=== PATIENT | male | born 1960 | race Caucasian/White ===

== ENCOUNTER 2021-04-05 10:25 | Outpatient (CLI) | payer SELFPAY ==
[2021-04-05 13:44] LABS: Prothrombin Time 10.8 sec (9.5-12.1)
[2021-04-05 13:47] LABS: Anion Gap 13 mmol/L (10-20); BUN (Urea Nitrogen) 14 mg/dL (8.4-25.7); Calc. Creatinine Clearance 0 mL/min (70-130); Calcium 9.4 mg/dL (7.8-10.44); Carbon Dioxide 26 mmol/L (23-31); Chloride 106 mmol/L (98-107); Glucose 81 mg/dL (80-115); Potassium 4.1 mmol/L (3.5-5.1); Sodium 141 mmol/L (136-145)
[2021-04-05 14:06] LABS: #Eosinphils 0.3 10x3/uL (0.0-0.5); #Monocytes 0.7 10x3/uL (0.0-1.1); #Neutrophils 2.2 10x3/uL (1.5-8.4); %Basophils 0.8 % (0.0-2.0); %Eosinophils 5.9 % (0.0-6.0); %Lymphocytes 37.6 % (18.0-47.0); %Monocytes 12.8 % (0.0-10.0); %Neutrophils 42.7 % (40.0-75.0); Hemoglobin 14.6 g/dL (13.5-17.5); Mean Corpuscular HGB CONC 33.7 g/dL (32.0-36.0); Mean Corpuscular Hemoglobin 29.8 pg (27.0-33.0); Mean Corpuscular Volume 88.4 fl (81.2-95.1); Mean Platelet Volume 8.6 fl (7.4-10.4); Platelet Count 222 10x3/uL (150-450); RBC Distribution Width 11.8 % (11.5-14.5); White Blood Cell (WBC) Count 5.1 10x3/uL (3.5-10.5)
[2021-04-05 17:27] LABS: SARS-CoV-2 PCR by NAA Not Detected (NotDetected)
== END 2021-04-05 10:26 | disposition home or self-care (01) ==
LOC: LABBT 10:25
PROVIDERS: ATTEND Orthopaedic Surgery
DX: Z01.818 Encounter for other preprocedural examination (principal); M16.12 Unilateral primary osteoarthritis, left hip; Z20.822 Contact with and (suspected) exposure to COVID-19
CPT/HCPCS: 80048; 85025; 85610; 87081; 93005; 93010; U0003; U0005

== ENCOUNTER 2021-04-05 10:30 | Inpatient (IN) | payer OTHER ==
[2021-04-09 11:42] VITALS: BMI 35.2
[2021-04-10] MEDS ORDERED: Tranexamic Acid 1,000 MG/10 ML VIAL ONE ×2 (07:36→13:21)
[2021-04-10] MEDS ORDERED: Sodium Chloride 0.9% 100 ML ONE (07:36)
[2021-04-10] MEDS ORDERED: ceFAZolin 2 GM/DEX 5% 100 ML BAG ONE (07:37)
[2021-04-10] MEDS ORDERED: Midazolam HCl 2 mg/2 ml Vial ONE (08:06)
[2021-04-10] MEDS ORDERED: Fentanyl 100 MCG/2 ML VIAL ONE ×2 (08:06→10:03)
[2021-04-10] MEDS ORDERED: Scopolamine 1.5 mg/72 hour Patch ONE (08:52)
[2021-04-10] MEDS ORDERED: Zolpidem Tartrate 5 MG TAB PO PRN ×2 (09:15→14:14)
[2021-04-10] MEDS ORDERED: HYDROcodone/Acetaminophen 5/325 mg Tablet PO PRN ×2 (09:15)
[2021-04-10] MEDS ORDERED: traMADol HCl 50 MG TAB PO PRN ×3 (09:15→14:14)
[2021-04-10] MEDS ORDERED: Promethazine HCl 25 MG SUPP PR PRN (09:15)
[2021-04-10] MEDS ORDERED: Fentanyl 5 mcg/Bup 0.075% Cadd 100 ML EPIDURAL SCH (09:15)
[2021-04-10] MEDS ORDERED: Promethazine HCl 25 MG/ML VIAL IM PRN ×3 (09:15→14:14)
[2021-04-10] MEDS ORDERED: Ketorolac Tromethamine 30 MG/ML VIAL IVP PRN ×2 (09:15→12:10)
[2021-04-10] MEDS ORDERED: Naloxone HCl 0.4 mg/ml Vial IV PRN (09:15)
[2021-04-10] MEDS ORDERED: Bupivacaine 0.25% 10 ML VIAL EPIDURAL PRN (09:15)
[2021-04-10] MEDS ORDERED: Ondansetron PF 4 MG/2 ML Vial IVP PRN ×2 (09:15→14:14)
[2021-04-10] MEDS ORDERED: Hydrocerin (Eucerin) Cream 120 gm Jar TOP PRN (09:15)
[2021-04-10] MEDS ORDERED: Acetaminophen 500 MG TAB PO PRN (09:15)
[2021-04-10] MEDS ORDERED: diphenhydrAMINE 50 MG/ML VIAL IM PRN (09:15)
[2021-04-10] MEDS ORDERED: Naloxone HCl 0.4 mg/ml Vial IVP PRN (09:15)
[2021-04-10] MEDS ORDERED: diphenhydrAMINE 50 MG/ML VIAL IVP PRN (09:15)
[2021-04-10] MEDS ORDERED: diphenhydrAMINE 25 MG CAP PO PRN ×2 (09:15→14:14)
[2021-04-10] MEDS ORDERED: Vancomycin 1.5 GRAM/300 ML BAG 1.5 GM in Premix Bag 1 BAG IVPB SCH ×2 (09:30→22:00)
[2021-04-10] MEDS ORDERED: Bupivacaine 0.25% HCL 30 ML VIAL ONE (10:09)
[2021-04-10] MEDS ORDERED: Dexamethasone 20 MG/5 ML VIAL ONE (10:23)
[2021-04-10] MEDS ORDERED: Glycopyrrolate 0.2 MG/ML 5 ML SYRINGE ONE (10:23)
[2021-04-10] MEDS ORDERED: PHENYLEPHRINE-NS 100 MCG/ML 10 ML SYRINGE ONE (10:23)
[2021-04-10] MEDS ORDERED: Lidocaine 1% PF 5 ML VIAL ONE (10:23)
[2021-04-10] MEDS ORDERED: Ketorolac Tromethamine 30 MG/ML VIAL ONE (10:23)
[2021-04-10] MEDS ORDERED: Ondansetron PF 4 MG/2 ML Vial ONE (10:23)
[2021-04-10] MEDS ORDERED: PROPOFOL 200 MG/20 ML VIAL ONE (10:23)
[2021-04-10] MEDS ORDERED: Lidocaine 1.5% w/Epi 1:200K 30 ML VIAL (Epid Use) ONE (10:23)
[2021-04-10] MEDS ORDERED: Rocuronium Bromide 10 MG/ML (10ML VIAL) ONE (10:23)
[2021-04-10] MEDS ORDERED: Promethazine HCl 25 MG/ML VIAL IVPB PRN (12:10)
[2021-04-10] MEDS ORDERED: Ondansetron HCl/PF 4 MG/2 ML Vial IVP PRN (12:10)
[2021-04-10] MEDS ORDERED: HYDROmorphone 2 MG/ML VIAL SLOW IVP PRN (12:10)
[2021-04-10] MEDS ORDERED: Fentanyl 100 MCG/2 ML VIAL SLOW IVP PRN ×2 (14:14)
[2021-04-10] MEDS ORDERED: HYDROcodone/Acetaminophen 10/325 mg Tablet PO PRN ×2 (14:14)
[2021-04-10] MEDS ORDERED: Acetaminophen 325 MG TAB PO PRN (14:14)
[2021-04-10] MEDS ORDERED: Ketorolac Tromethamine 30 MG/ML VIAL IM PRN (14:14)
[2021-04-10] MEDS ORDERED: Aspirin 81 mg Enteric Coated Tablet PO SCH ×2 (15:00→21:00)
[2021-04-10] MEDS ORDERED: FLU VACC QS2021-22(6MOS UP)/PF 60 MCG/0.5 ML SYRINGE IM ONE (15:30)
[2021-04-10] MEDS: Sodium Chloride 0.9% 1,000 ML IV SCH (16:32)
[2021-04-10] MEDS: CEFAZOLIN 2 GM, Admixture Fee 1 EACH in Sodium Chloride 0.9% 100 ML IVPB SCH ×2 (16:40→23:54)
[2021-04-10] MEDS ORDERED: Vancomycin HCl 1.5 GM in Sodium Chloride 0.9% 250 ML 300 ML IVPB SCH (22:00)
[2021-04-11] MEDS: Sodium Chloride 0.9% 1,000 ML IV SCH ×2 (00:31→13:05)
[2021-04-11 05:44] LABS: Hemoglobin 12.4 g/dL (14.0-18.0); Mean Corpuscular HGB CONC 35.1 g/dL (32.0-36.0); Mean Corpuscular Hemoglobin 31.1 pg (27.0-31.0); Mean Corpuscular Volume 88.7 fL (78.0-98.0); Platelet Count 204 thou/uL (130-400); RBC Distribution Width 10.7 % (11.5-14.5); Red Blood Cell (RBC) Count 3.98 mill/uL (4.70-6.10); White Blood Cell (WBC) Count 8.9 thou/uL (4.8-10.8)
[2021-04-11] MEDS ORDERED: Senokot S 8.6-50 MG TAB PO SCH (09:00)
[2021-04-11] MEDS ORDERED: Multivitamin W/ Minerals 1 TAB PO SCH (09:00)
[2021-04-11] MEDS ORDERED: Ferrous Gluconate 324 MG TAB PO SCH (09:00)
[2021-04-11] MEDS ORDERED: Aspirin 81 mg Enteric Coated Tablet PO SCH (09:00)
[2021-04-11 12:23] VITALS: BP 110/72; TEMP 97.4
== END 2021-04-11 15:10 | disposition home or self-care (01) | DRG 470 ==
LOC: SURG A 04-10 06:57
PROVIDERS: ADMIT Orthopaedic Surgery; ATTEND Orthopaedic Surgery
PROC: 0SRB04Z Replacement of Left Hip Joint with Ceramic on Polyethylene Synthetic Substitute, Open Approach (ICD-10-PCS; principal; 2021-04-10)
DX: M16.12 Unilateral primary osteoarthritis, left hip (principal); Z20.822 Contact with and (suspected) exposure to COVID-19
CPT/HCPCS: 36415; 72170; 85027; C1776; J0690; J1100; J1885; J2001; J2250; J2405; J2704; J3010; J3370; J3490; J7050; S0020

== ENCOUNTER 2021-09-24 13:22 | Outpatient (CLI) | payer SELFPAY ==
[2021-09-24 14:40] LABS: #Eosinphils 0.3 10x3/uL (0.0-0.5); #Monocytes 0.6 10x3/uL (0.0-1.1); #Neutrophils 2.5 10x3/uL (1.5-8.4); %Basophils 0.7 % (0.0-2.0); %Eosinophils 5.4 % (0.0-6.0); %Lymphocytes 39.8 % (18.0-47.0); %Neutrophils 43.9 % (40.0-75.0); Hemoglobin 14.7 g/dL (13.5-17.5); Mean Corpuscular HGB CONC 33.9 g/dL (32.0-36.0); Mean Corpuscular Hemoglobin 29.6 pg (27.0-33.0); Mean Corpuscular Volume 87.1 fl (81.2-95.1); Mean Platelet Volume 9.8 fl (7.4-10.4); Platelet Count 181 10x3/uL (150-450); RBC Distribution Width 12.5 % (11.5-14.5); Red Blood Cell (RBC) Count 4.97 10x6/uL (4.32-5.72); White Blood Cell (WBC) Count 5.7 10x3/uL (3.5-10.5)
[2021-09-24 15:04] LABS: Anion Gap 16 mmol/L (10-20); BUN (Urea Nitrogen) 12 mg/dL (8.4-25.7); Calc. Creatinine Clearance 0 mL/min (70-130); Calcium 9.3 mg/dL (7.8-10.44); Carbon Dioxide 24 mmol/L (23-31); Chloride 105 mmol/L (98-107); Glucose 88 mg/dL (80-115); Potassium 4.4 mmol/L (3.5-5.1); Sodium 141 mmol/L (136-145)
[2021-09-24 23:56] LABS: SARS-CoV-2 PCR by NAA Not Detected (NotDetected)
== END 2021-09-24 13:23 | disposition home or self-care (01) ==
LOC: LABBT 13:22
PROVIDERS: ATTEND Specialist
DX: Z01.818 Encounter for other preprocedural examination (principal); Z20.822 Contact with and (suspected) exposure to COVID-19
CPT/HCPCS: 80048; 85025; 93005; 93010; U0003; U0005

== ENCOUNTER 2021-09-27 11:33 | Day surgery (SDC) | payer OTHER ==
[2021-09-25 14:29] VITALS: BMI 24.9
[2021-09-27] MEDS ORDERED: Ketorolac Tromethamine 30 MG/ML VIAL ONE (12:16)
[2021-09-27] MEDS ORDERED: Acetaminophen 500 MG TAB ONE (12:16)
[2021-09-27] MEDS ORDERED: Bupivacaine 0.25% 10 ML VIAL ONE (13:52)
[2021-09-27] MEDS ORDERED: Lidocaine 1% w/Epinephrine 1:100K 20 ML VIAL ONE (13:52)
[2021-09-27] MEDS ORDERED: Midazolam HCl 2 mg/2 ml Vial ONE (14:07)
[2021-09-27] MEDS ORDERED: fentaNYL Citrate/PF 100 MCG/2 ML SYRINGE ONE (14:08)
[2021-09-27] MEDS ORDERED: Ketamine 50 MG/ML (10ML VIAL) ONE (14:08)
[2021-09-27] MEDS ORDERED: HYDROmorphone 0.5 MG/0.5 ML SYRINGE ONE (14:08)
[2021-09-27] MEDS ORDERED: ceFAZolin (BATCH) 2 GM/100 ML BAG ONE (14:12)
[2021-09-27] MEDS ORDERED: Lidocaine 1% PF 5 ML VIAL ONE (14:21)
[2021-09-27] MEDS ORDERED: Ondansetron PF 4 MG/2 ML Vial ONE (14:21)
[2021-09-27] MEDS ORDERED: Rocuronium Bromide 10 MG/ML (10ML VIAL) ONE (14:21)
[2021-09-27] MEDS ORDERED: PROPOFOL 200 MG/20 ML VIAL ONE (14:21)
[2021-09-27] MEDS ORDERED: ePHEDrine 50 MG/ML VIAL ONE (14:21)
[2021-09-27] MEDS ORDERED: Dexamethasone 20 MG/5 ML VIAL ONE (14:21)
[2021-09-27] MEDS ORDERED: Glycopyrrolate 0.2 MG/ML 5 ML SYRINGE ONE (14:21)
[2021-09-27] MEDS ORDERED: Fentanyl 100 MCG/2 ML VIAL ONE (16:48)
== END 2021-09-27 19:12 | disposition home or self-care (01) ==
LOC: SDC 11:33
PROVIDERS: ATTEND Specialist
PROC: 0YU54JZ Supplement Right Inguinal Region with Synthetic Substitute, Percutaneous Endoscopic Approach (ICD-10-PCS; principal; 2021-09-27)
DX: K40.30 Unilateral inguinal hernia, with obstruction, without gangrene, not specified as recurrent (principal); E78.5 Hyperlipidemia, unspecified
CPT/HCPCS: C1781; J0690; J1100; J1170; J1885; J2250; J2405; J2704; J3010; J3490; S0020